=== PATIENT | male | born 1950 | race Caucasian/White ===

== ENCOUNTER 2017-11-08 10:37 | Emergency (ER) | payer MEDICARE, OTHER, SELFPAY ==
[2017-11-08 10:43] VITALS: BP 167/97; PULSE 65; RESP 18; TEMP 37.2; O2SAT 95; BMI 38.0
--- NOTE | 2017-11-08 10:49 | ED.MALEGU ---
HPI - Male Genitourinary General Chief complaint: Urogenital-Male Stated complaint: groin pain Time Seen by Provider: 11/08/17 10:48 Source: patient Mode of arrival: ambulatory Limitations: no limitations History of Present Illness HPI Narrative: 67-year-old male here for evaluation of left lower abdomen pain radiating to his left groin. Patient states that has been going on for approximately 24 hr now. He states that he has had bilateral inguinal hernia repairs several years ago he does not know whether that his symptoms that brought him in today or recurrence of those hernias. No urinary symptoms. No bowel symptoms. No skin changes. No rashes. No vomiting. Has not tried anything for prior to arrival. Related Data Home Medications Medication Instructions Recorded Confirmed ASPIRIN (#ASPIRIN) 81 mg PO QDAY #0 09/09/11 FENOFIBRATE (#TRICOR) 160 mg PO QDAY #0 09/09/11 LEVOTHYROXINE SODIUM 100 mcg PO QDAY #0 09/09/11 atorvastatin [Lipitor] 40 mg PO HS #0 09/09/11 dutasteride [Avodart] 0.5 mg PO QDAY #0 09/09/11 metoprolol tartrate 100 mg PO BID #0 09/09/11 omeprazole 20 mg PO BID@0600,2100 #0 09/09/11 telmisartan [Micardis] 80 mg PO QDAY #0 09/09/11 tramadol 50 mg PO PRN #0 09/09/11 INSULIN DETEMIR (LEVEMIR FLEXPEN 3 40 units SQ HS #3 ml 03/02/12 ML) INSULIN DETEMIR (LEVEMIR FLEXPEN 3 40 units SQ HS #3 ml 03/02/12 ML) allopurinol 300 mg PO QDAY #0 03/02/12 doxazosin [Cardura] mg PO HS #0 03/02/12 glipizide [Glucotrol] 10 mg PO BIDCC #0 03/02/12 Allergies Allergy/AdvReac Type Severity Reaction Status Date / Time Penicillins Allergy Unknown Verified 11/08/17 10:48 Review of Systems Constitutional Denies fever(s) Cardiovascular Denies chest pain and Denies dyspnea Respiratory Denies dyspnea Gastrointestinal Gastrointestinal: Reports abdominal pain (Left lower abdomen), Denies melena, Denies change in stool character and Denies diarrhea Genitourinary Denies dysuria Musculoskeletal Denies myalgias and Denies arthralgias Integumentary/Breasts Denies lesions and Denies rash Hematologic/Lymphatic Denies easy bleeding and Denies easy bruising FOR[facility]LY [facility], LATER [facility] Medical History Diabetes (Acute) Hyperlipidemia (Acute) Hypertension (Acute) Surgical History History of inguinal hernia repair (Acute) Social History Smoking Status: Never smoker Exam Initial Vital Signs Initial Vital Signs: Vital Signs Temperature 98.9 F 11/08/17 10:43 Pulse Rate 65 11/08/17 10:43 Respiratory Rate 18 11/08/17 10:43 Blood Pressure 167/97 H 11/08/17 10:43 Pulse Oximetry 95 11/08/17 10:43 Const General: cooperative, healthy appearing, comfortable, well developed and No well groomed Orientation: alert, awake and oriented x3 Resp Effort & Inspection: normal respiratory effort Auscultation: clear to auscultation bilaterally Cardio Rate: regular rate Rhythm: regular rhythm GI Inspection: non-distended Palpation: soft, No firm and No tender Other: Patient with a large soft mass in his left hemiscrotum. Difficult to distinguish between testicle in this mass. Does not seem to be tender to palpation Right testicle unremarkable. Circumcised. Back/Spine/Pelvis Back: No CVA tenderness Skin Lesions: no lesions Rashes: no rashes Neuro General: alert, awake and oriented x3 Extrem General: normal to inspection Left upper extremity: normal to inspection Psych Appearance: grossly normal and well kempt Course Orders Ordered: ED Orders 11/08/17 10:54 US scrotum Stat 11/08/17 11:15 Basic Metabolic Panel Stat Complete Blood Count AUTO DIFF Stat 11/08/17 11:37 CT abdomen pelvis w con Stat 11/08/17 11:40 Urine Microscopic Stat Vital Signs - 8 hr 11/08/17 10:43 11/08/17 12:44 11/08/17 13:16 Temperature 98.9 F Pulse Rate 65 56 L 55 L Respiratory Rate 18 Blood Pressure 167/97 H Blood Pressure [Left Arm] 118/70 130/63 H Pulse Oximetry 95 92 92 MDM - Male Genitourinary Lab Data Attestation: I reviewed the patient's lab results. Result diagrams: 11/08/17 11:15 11/08/17 11:15 Lab Results 08/11/08/17 11/08/17 Range/Units 11:15 11:15 11:40 WBC 5.7 (4.5-11.0) X10^3/uL RBC 4.82 (4.5-5.9) X10^6/uL Hgb 15.4 (13.5-17.5) g/dL Hct 44.1 (41-53) % MCV 91.6 (80-100) fL MCH 31.9 (26-34) PG MCHC 34.8 (30-36) % RDW 14.0 (11.6-14.8) % Plt Count 163 (150-400) X10^3/uL Neut % (Auto) 58.1 (50-75) % Lymph % (Auto) 31.4 (25-40) % [place] % (Auto) 7.8 (3-14) % Eos % (Auto) 2.1 (2-4) % Baso % (Auto) 0.6 (0-2) % Neut # (Auto) 3300 (8595-0249) /uL Sodium 140 (137-145) mmol/L Potassium 3.8 (3.4-5.1) mmol/L Chloride 102 (98-107) mmol/L Carbon Dioxide 29 (22-32) mmol/L BUN 21 H (9-20) mg/dL Creatinine 1.10 (0.66-1.25) mg/dL Estimated GFR > 60.0 (>60) mL/min BUN/Creatinine Ratio 19.1 (6-22) Glucose 190 H (80-110) mg/dL Calcium 9.6 (8.4-10.2) mg/dL Urine RBC None seen (0-5/HPF) Urine WBC None seen (0-5/HPF) Urine Bacteria None seen (None) Ur Culture Indicated? Not Reportable Micro UA Comment Not Reportable Imaging Data CT scan - abdomen: Radiologist's impression: PROCEDURE: CT ABDOMEN PELVIS W CON INDICATIONS: Left-sided abdominal pain TECHNIQUE: After the administration of intravenous contrast, 5 mm thick sections acquired from the diaphragm to the symphysis. 5 mm coronal and sagittal reformats were acquired. For radiation dose reduction, the following was used: automated exposure control, adjustment of mA and/or kV according to patient size. COMPARISON: None. FINDINGS: Image quality: Excellent. ABDOMEN: Lung bases: Lung bases are clear. Heart size is normal. Solid organs: Liver is normal in size. Hepatic steatosis is seen. No discrete hepatic lesion is noted. Multiple calcified stones are seen in dependent portion of gallbladder lumen. No CT evidence of acute cholecystitis. Biliary system is non dilated. Pancreas enhances normally. Spleen is normal in size and enhancement. No adrenal nodules. Kidneys demonstrate normal size and enhancement, without hydronephrosis. Peritoneum and bowel: Bowel loops demonstrate normal wall thickness and caliber. No free fluid or air. There is a small hiatal hernia. Extensive sigmoid diverticulosis is seen. No CT evidence of acute diverticulitis. Nodes and vessels: No retroperitoneal or mesenteric adenopathy by size criteria. Aorta and inferior vena cava are normal in size. Miscellaneous: No ventral hernias. PELVIS: Genitourinary: Partially distended urinary bladder shows mild unit bladder wall thickening, no discrete bladder wall mass is seen. Enlarged prostate gland with mild mass effect of floor of urinary bladder is seen. Miscellaneous: There is a right inguinal hernia containing fat only. No pelvic adenopathy. Bones: No suspicious bony lesions. No vertebral body compression fractures. IMPRESSION: 1. Sigmoid diverticulosis with no CT evidence of acute diverticulitis. No bowel obstruction. No free fluid or free air. Small hiatal hernia. 2. Suggestion of urinary bladder wall thickening which could represent infectious or inflammatory cystitis. No definite discrete bladder wall mass. No renal stone hydronephrosis. 3. Right inguinal hernia containing fat only. Cholelithiasis with no CT evidence of acute cholecystitis. Dictated by: Ayden Lainez M.D. on 11/08/2017 at 12:42 Approved by: Ayden Lainez M.D. on 11/08/2017 at 12:46 US scrotum: Radiologist's impression: [address] [address] Ultrasound Report Signed Patient: Modesto Rodriguez LMR#: [id number] : 1950Acct:[id number] Age/Sex: 67 / MDate of Service: 11/08/17 Loc: ED Accession Number: [id number] Procedure: US scrotum Ordering Provider: Woody Redmond D.O. PROCEDURE: US SCROTUM INDICATIONS: L testicle pain TECHNIQUE: Real-time scanning was performed of the scrotum and testicles, with image documentation. Color and pulse Doppler interrogation was performed of both testicles. COMPARISON: None. FINDINGS: Right: Testicle is normal in size at 5.1 x 2.2 x 3.0 cm, and homogenous in echotexture. Epididymis is normal in overall size and morphology. No hydrocele. Small right-sided varicoceles are seen. Overlying scrotal skin is normal in thickness. Left: Testicle is normal in size at 5.9 x 2.5 x 2.6 cm, and homogeneous in echotexture. Epididymis is normal in overall size and morphology. There is a large left-sided hydrocele. No significant left-sided varicoceles. Overlying scrotal skin is normal in thickness. Doppler: Color and pulse Doppler demonstrate normal and symmetric arterial flow in both testicles. IMPRESSION: 1. Large left hydrocele. No significant right-sided hydrocele. Small amount of right-sided varicoceles. 2. No evidence of testicular torsion. No discrete testicular lesion. Dictated by: Ayden Lainez M.D. on 11/08/2017 at 11:53 Approved by: Ayden Lainez M.D. on 11/08/2017 at 11:56 MDM Narrative Medical decision making narrative: Ultrasound does not show any evidence of torsion. The mass in the left hemiscrotum appears to be a hydrocele. CT scan does not show any incarcerated hernias. Patient does not have any bladder symptoms consistent with a UTI. Will hold on antibiotics for now. Will hold on further workup for now. Patient was given return precautions. He expressed understanding and agreement with plan. Discharge Plan Departure Patient Disposition: Home Clinical Impression: Abdominal pain, Hydrocele Discharge Date/Time: 11/08/17 13:42 Interventions: ED Discharge Assessment Last Done: 11/08/17 13:41 Instructions: DI for Abdominal Pain-Adult, DI for Hydrocele-Adult Activity Restrictions/Additional Instructions: Recommend you contact your primary care doctor tomorrow for a follow-up you are only limited in your activity by your pain. Return to the emergency department for any new or worsening symptoms. Prescriptions: No Action telmisartan [Micardis] 80 MG tablet 80 mg PO QDAY Qty: 0 RF: 0 tramadol 50 MG tablet 50 mg PO PRN Qty: 0 RF: 0 FENOFIBRATE (#TRICOR) 160 mg PO QDAY Qty: 0 RF: 0 atorvastatin [Lipitor] 40 MG tablet 40 mg PO HS Qty: 0 RF: 0 metoprolol tartrate 100 MG tablet 100 mg PO BID Qty: 0 RF: 0 omeprazole 20 MG capsule,delayed release(DR/EC) 20 mg PO BID@0600,2100 Qty: 0 RF: 0 dutasteride [Avodart] 0.5 MG capsule 0.5 mg PO QDAY Qty: 0 RF: 0 LEVOTHYROXINE SODIUM 100 mcg PO QDAY Qty: 0 RF: 0 ASPIRIN (#ASPIRIN) 81 mg PO QDAY Qty: 0 RF: 0 allopurinol 300 MG tablet 300 mg PO QDAY Qty: 0 RF: 0 INSULIN DETEMIR (LEVEMIR FLEXPEN 3 ML) 40 units SQ HS Qty: 3 RF: 0 INSULIN DETEMIR (LEVEMIR FLEXPEN 3 ML) 40 units SQ HS Qty: 3 RF: 0 glipizide [Glucotrol] 10 MG tablet 10 mg PO BIDCC Qty: 0 RF: 0 doxazosin [Cardura] 4 MG tablet PO HS Qty: 0 RF: 0
--- NOTE | 2017-11-08 10:54 | DI.US.S_ITS ---
PROCEDURE: US SCROTUM INDICATIONS: L testicle pain TECHNIQUE: Real-time scanning was performed of the scrotum and testicles, with image documentation. Color and pulse Doppler interrogation was performed of both testicles. COMPARISON: None. FINDINGS: Right: Testicle is normal in size at 5.1 x 2.2 x 3.0 cm, and homogenous in echotexture. Epididymis is normal in overall size and morphology. No hydrocele. Small right-sided varicoceles are seen. Overlying scrotal skin is normal in thickness. Left: Testicle is normal in size at 5.9 x 2.5 x 2.6 cm, and homogeneous in echotexture. Epididymis is normal in overall size and morphology. There is a large left-sided hydrocele. No significant left-sided varicoceles. Overlying scrotal skin is normal in thickness. Doppler: Color and pulse Doppler demonstrate normal and symmetric arterial flow in both testicles. IMPRESSION: 1. Large left hydrocele. No significant right-sided hydrocele. Small amount of right-sided varicoceles. 2. No evidence of testicular torsion. No discrete testicular lesion. Dictated by: Ayden Lainez M.D. on 11/08/2017 at 11:53 Approved by: Ayden Lainez M.D. on 11/08/2017 at 11:56
[2017-11-08 11:33] LABS: Add Manual Diff / Slide Review NO; Basophils Percent Auto 0.6 % (0-2); Eosinophils Percent Auto 2.1 % (2-4); Hematocrit 44.1 % (41-53); Hemoglobin 15.4 g/dL (13.5-17.5); Lymphocytes Percent Auto 31.4 % (25-40); Mean Corpuscular HGB Conc 34.8 % (30-36); Mean Corpuscular Hemoglobin 31.9 PG (26-34); Mean Corpuscular Volume 91.6 fL (80-100); Monocytes Percent Auto 7.8 % (3-14); Neutrophils Absolute Auto 3300 /uL (3000-5900); Neutrophils Percent Auto 58.1 % (50-75); Platelet Count 163 X10^3/uL (150-400); Red Blood Cell Count 4.82 X10^6/uL (4.5-5.9); White Blood Cell Count 5.7 X10^3/uL (4.5-11.0)
--- NOTE | 2017-11-08 11:37 | DI.CT.S_ITS ---
PROCEDURE: CT ABDOMEN PELVIS W CON INDICATIONS: Left-sided abdominal pain TECHNIQUE: After the administration of intravenous contrast, 5 mm thick sections acquired from the diaphragm to the symphysis. 5 mm coronal and sagittal reformats were acquired. For radiation dose reduction, the following was used: automated exposure control, adjustment of mA and/or kV according to patient size. COMPARISON: None. FINDINGS: Image quality: Excellent. ABDOMEN: Lung bases: Lung bases are clear. Heart size is normal. Solid organs: Liver is normal in size. Hepatic steatosis is seen. No discrete hepatic lesion is noted. Multiple calcified stones are seen in dependent portion of gallbladder lumen. No CT evidence of acute cholecystitis. Biliary system is non dilated. Pancreas enhances normally. Spleen is normal in size and enhancement. No adrenal nodules. Kidneys demonstrate normal size and enhancement, without hydronephrosis. Peritoneum and bowel: Bowel loops demonstrate normal wall thickness and caliber. No free fluid or air. There is a small hiatal hernia. Extensive sigmoid diverticulosis is seen. No CT evidence of acute diverticulitis. Nodes and vessels: No retroperitoneal or mesenteric adenopathy by size criteria. Aorta and inferior vena cava are normal in size. Miscellaneous: No ventral hernias. PELVIS: Genitourinary: Partially distended urinary bladder shows mild unit bladder wall thickening, no discrete bladder wall mass is seen. Enlarged prostate gland with mild mass effect of floor of urinary bladder is seen. Miscellaneous: There is a right inguinal hernia containing fat only. No pelvic adenopathy. Bones: No suspicious bony lesions. No vertebral body compression fractures. IMPRESSION: 1. Sigmoid diverticulosis with no CT evidence of acute diverticulitis. No bowel obstruction. No free fluid or free air. Small hiatal hernia. 2. Suggestion of urinary bladder wall thickening which could represent infectious or inflammatory cystitis. No definite discrete bladder wall mass. No renal stone hydronephrosis. 3. Right inguinal hernia containing fat only. Cholelithiasis with no CT evidence of acute cholecystitis. Dictated by: Ayden Lainez M.D. on 11/08/2017 at 12:42 Approved by: Ayden Lainez M.D. on 11/08/2017 at 12:46
[2017-11-08 11:39] LABS: BUN Creatinine Ratio 19.1 (6-22); Blood Urea Nitrogen 21 mg/dL (9-20); Calcium 9.6 mg/dL (8.4-10.2); Carbon Dioxide 29 mmol/L (22-32); Chloride 102 mmol/L (98-107); Estimated Glomerular Filt Rate > 60.0 mL/min (>60); Glucose 190 mg/dL (80-110); HEMOLYSIS < 15 (0-50); Potassium 3.8 mmol/L (3.4-5.1); Sodium 140 mmol/L (137-145)
[2017-11-08 12:08] LABS: Bacteria Urine None Seen; RBC Urine None Seen (0-5/HPF); WBC Urine None Seen (0-5/HPF)
[2017-11-08 12:44] VITALS: BP 118/70; PULSE 56; RESP 18; O2SAT 92
[2017-11-08 13:16] VITALS: BP 130/63; PULSE 55; RESP 18; O2SAT 92
== END 2017-11-08 13:42 | disposition home or self-care (01) ==
PROVIDERS: Emergency Provider Emergency Medicine; PCP Family Medicine
DX: N43.3 Hydrocele, unspecified (principal); R10.9 Unspecified abdominal pain
CPT/HCPCS: 36415; 36591; 74177; 76870; 80048; 81003; 81015; 85025; 99282; 99285; Q9967

== ENCOUNTER 2022-02-13 06:50 | Emergency (ER) | payer MEDICARE, OTHER, SELFPAY ==
[2022-02-13] VITALS (117 sets, daily range): BP systolic 112–196; BP diastolic 58–101; PULSE 61–92; RESP 12–28; TEMP 36.7; O2SAT 87–98; BMI 41.3
--- NOTE | 2022-02-13 06:55 | DI.RAD.S_ITS ---
PROCEDURE: XR CHEST 1V INDICATIONS: chest pain TECHNIQUE: One view of the chest was acquired. COMPARISON: None. FINDINGS: Surgical changes and devices: None. Lungs and pleura: Lungs are clear. No pleural effusions or pneumothorax. Mediastinum: Mediastinal contours appear normal. Heart size is normal. Bones and chest wall: No suspicious bony lesions. Overlying soft tissues appear unremarkable. IMPRESSION: No acute cardiopulmonary disease. Dictated by: Brandie Christian M.D. on 02/13/2022 at 8:28 Approved by: Brandie Christian M.D. on 02/13/2022 at 8:28
--- NOTE | 2022-02-13 06:57 | ED.CHESTPAIN ---
HPI - Chest Pain <Tomy PrasadDO ophelia - Last Filed: 02/17/22 20:25> General Chief Complaint: Chest Pain Stated Complaint: CP Time Seen by Provider: 02/13/22 06:55 History of Present Illness HPI narrative: 71-year-old male nonsmoker with history of coronary artery disease and reports history of 7 stents, hypertension, hyperlipidemia, diabetes, GERD and gout presents by [facility] for evaluation of chest pain. He states that he has been having chest pain and pressure off and on since . He states when it 1st started he was relaxing and seemed to go away without much excitement. Since then he is had increasing episodes and today states the pain radiated across his chest for the 1st time. He denies obvious provocation and states that the 2 nitro the medics gave him took his pain from a 9 down to a 2. He denies associated symptoms such as dizziness, weakness or lightheaded but does state that he has been nauseated. He denies any obvious exertional symptoms or exercise intolerance. He states he thinks his most recent stress test was in October and thinks that went relatively well. He thinks his most recent heart catheterization was in 2018. 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 Related Data Home Medications Medication Instructions Recorded Confirmed ASPIRIN (#ASPIRIN) 81 mg PO QDAY ##0 09/09/11 FENOFIBRATE (#TRICOR) 160 mg PO QDAY ##0 09/09/11 LEVOTHYROXINE SODIUM 100 mcg PO QDAY ##0 09/09/11 atorvastatin 40 mg tablet (Lipitor) 40 mg PO HS ##0 09/09/11 dutasteride 0.5 mg capsule 0.5 mg PO QDAY ##0 09/09/11 (Avodart) metoprolol tartrate 100 mg tablet 100 mg PO BID ##0 09/09/11 omeprazole 20 mg capsule,delayed 20 mg PO BID@0600,2100 ##0 09/09/11 release telmisartan 80 mg tablet (Micardis) 80 mg PO QDAY ##0 09/09/11 tramadol 50 mg tablet 50 mg PO PRN ##0 09/09/11 INSULIN DETEMIR (LEVEMIR FLEXPEN 3 40 units SQ HS #3 mL 03/02/12 ML) INSULIN DETEMIR (LEVEMIR FLEXPEN 3 40 units SQ HS #3 mL 03/02/12 ML) allopurinol 300 mg tablet 300 mg PO QDAY ##0 03/02/12 doxazosin 4 mg tablet (Cardura) mg PO HS ##0 03/02/12 glipizide 10 mg tablet (Glucotrol) 10 mg PO BIDCC ##0 03/02/12 Previous Rx's Medication Instructions Recorded isosorbide mononitrate 60 mg 60 mg PO DAILY #30 tabs 02/13/22 tablet,extended release 24 hr Allergies Allergy/AdvReac Type Severity Reaction Status Date / Time Penicillins Allergy Unknown Verified 11/08/17 10:48 Review of Systems <Tomy Washington DO - Last Filed: 02/17/22 20:25> Review of Systems Narrative: GENERAL: Denies chills, fatigue, malaise, fever, sweats. HEENT: Denies sinus pain, ear pain, sore throat, difficulty swallowing, dizziness. RESPIRATORY: Denies dyspnea, cough, wheezing, hemoptysis, sputum. CARDIOVASCULAR: See HPI GASTROINTESTINAL: See HPI : Denies dysuria, frequency, incontinence, hematuria, urinary retention. MUSCULOSKELETAL: denies weakness, joint pain, or bony pain SKIN: Denies rash, skin lesions, or other NEUROLOGIC: Denies weakness, headache, numbness, change in speech, confusion, seizures, incoordination. PSYCHIATRIC: No concerning psychosocial issues. 12 point review of systems is negative except for those stated above Patient History <Tomy Washington DO - Last Filed: 02/17/22 20:25> Medical History Diabetes Hyperlipidemia Hypertension Surgical History History of inguinal hernia repair Social History Smoking Status: Never smoker Smoking Status: Never smoker alcohol intake frequency: holidays/special occasions only Substance Use Type: does not use Exam <Tomy Washington DO - Last Filed: 02/17/22 20:25> Narrative Exam Narrative: GENERAL: [71] year old patient appears stated age. Well-developed patient, in mild distress. HEAD: Atraumatic. Normocephalic. EYES: Pupils equal round and reactive. Extraocular motions intact. No scleral icterus. No injection or drainage. ENT: Nose without bleeding, purulent drainage. Throat without erythema, tonsillar hypertrophy or exudate. Airway patent. NECK: Trachea midline. Non tender CARDIOVASCULAR: Regular rate and rhythm without murmurs, gallops, or rubs. RESPIRATORY: Clear to auscultation. Breath sounds equal bilaterally. No wheezes, rales, or rhonchi. GASTROINTESTINAL: Abdomen soft, non-tender, nondistended. EXTREMITIES: No edema or joint tenderness. BACK: Nontender without deformity or crepitance. No flank tenderness. NEURO: AOx3. SKIN: No rash or erythema of visible areas Initial Vital Signs Initial Vital Signs: Vital Signs Temperature 98.0 F 02/13/22 06:59 Pulse Rate 85 02/13/22 06:59 Respiratory Rate 22 02/13/22 06:59 Blood Pressure 160/89 H 02/13/22 06:59 Pulse Oximetry 96 02/13/22 06:59 Oxygen Delivery Method 02/13/22 06:59 <Carmina Ramos, DO - Last Filed: 02/13/22 19:19> Initial Vital Signs Initial Vital Signs: Vital Signs Temperature 98.0 F 02/13/22 06:59 Pulse Rate 85 02/13/22 06:59 Respiratory Rate 22 02/13/22 06:59 Blood Pressure 160/89 H 02/13/22 06:59 Pulse Oximetry 96 02/13/22 06:59 Oxygen Delivery Method 02/13/22 06:59 Course <Tomy Washington, DO - Last Filed: 02/17/22 20:25> Orders Ordered: Discontinued Medications Acetaminophen (Acetaminophen 325 Mg Tablet) 975 mg PO NOW ONE Stop: 02/13/22 12:30 Last Admin: 02/13/22 12:31 Dose: 975 mg Documented By: JILLIAN Aspirin (Aspirin 81 Mg Chew Tab) 324 mg PO NOW ONE Stop: 02/13/22 06:56 Last Admin: 02/13/22 07:11 Dose: Not Given Documented By: CHRIS Dextrose (Dextrose 50 % In Water 25 Gm/50 Ml Syringe) 25 gm IV PRN PRN; Protocol PRN Reason: Hypoglycemia Sodium Chloride (Normal Saline 0.9%) 1,000 mls @ 150 mls/hr IV CONT TONIO Last Infusion: 02/13/22 14:47 Dose: 0 mls/hr Documented By: Admin: 02/13/22 07:35 Dose: 150 mls/hr Documented By: JILLIAN Insulin Glargine (Insulin Glargine 100 Unit/Ml 3ml Pen) 42 unit SUBCUT NOW ONE Stop: 02/13/22 10:10 Last Admin: 02/13/22 12:25 Dose: Not Given Documented By: JILLIAN Insulin Glargine (Insulin Glargine 100 Unit/Ml 3ml Pen) 42 unit SUBCUT NOW ONE Stop: 02/13/22 12:31 Last Admin: 02/13/22 12:25 Dose: 42 unit Documented By: JILLIAN Co-signed By: JILLIAN(2) Insulin Glargine (Insulin Glargine 100 Unit/Ml 3ml Pen) 40 unit SUBCUT TID TONIO Insulin Human Lispro (Insulin Lispro 100 Unit/Ml 3ml Vial) 42 unit SUBCUT AC TONIO Last Admin: 02/13/22 16:21 Dose: 42 unit Documented By: KARI Co-signed By: ASHLEY Admin: 02/13/22 12:19 Dose: 42 unit Documented By: JILLIAN Co-signed By: JILLIAN(3) Isosorbide Mononitrate (Isosorbide Mononitrate Er 30 Mg Tablet) 60 mg PO NOW ONE Stop: 02/13/22 17:16 Last Admin: 02/13/22 17:49 Dose: 60 mg Documented By: KARI Morphine Sulfate (Morphine 2 Mg/Ml Inj) 2 mg IV NOW ONE Stop: 02/13/22 15:59 Last Admin: 02/13/22 16:21 Dose: 2 mg Documented By: KARI Nitroglycerin (Nitroglycerin 0.4 Mg Sl Tab) 0.4 mg SL [id number] PRN PRN Reason: Chest Pain Last Admin: 02/13/22 08:45 Dose: 0.4 mg Documented By: Admin: 02/13/22 07:14 Dose: 0.4 mg Documented By: CHRIS Nitroglycerin (Nitroglycerin Oint 1 Inch/Gm Oint...G.) 1 inch TOP NOW ONE Stop: 02/13/22 10:46 Last Admin: 02/13/22 10:55 Dose: 1 inch Documented By: JILLIAN(3) Vital Signs Vital signs: Vital Signs - 8 hr 02/13/22 11:20 02/13/22 11:20 02/13/22 11:26 Pulse Rate 70 Respiratory Rate Blood Pressure 144/73 H 147/71 H Pulse Oximetry 93 02/13/22 11:26 02/13/22 11:30 02/13/22 11:31 Pulse Rate 70 68 68 Respiratory Rate Blood Pressure Pulse Oximetry 95 94 95 02/13/22 11:31 02/13/22 11:35 02/13/22 11:35 Pulse Rate 74 Respiratory Rate Blood Pressure 152/73 H 160/80 H Pulse Oximetry 96 02/13/22 11:41 02/13/22 11:41 02/13/22 11:45 Pulse Rate 72 Respiratory Rate Blood Pressure 149/70 H 152/74 H Pulse Oximetry 96 02/13/22 11:45 02/13/22 11:51 02/13/22 11:51 Pulse Rate 73 77 Respiratory Rate Blood Pressure 158/69 H Pulse Oximetry 95 96 02/13/22 11:55 02/13/22 11:55 02/13/22 12:00 Pulse Rate 74 Respiratory Rate Blood Pressure 151/70 H 148/68 H Pulse Oximetry 95 02/13/22 12:00 02/13/22 12:05 02/13/22 12:05 Pulse Rate 74 73 Respiratory Rate Blood Pressure 147/68 H Pulse Oximetry 94 94 02/13/22 12:10 02/13/22 12:10 02/13/22 12:16 Pulse Rate 73 79 Respiratory Rate Blood Pressure 148/62 H Pulse Oximetry 93 93 02/13/22 12:16 02/13/22 12:30 02/13/22 13:00 Pulse Rate 74 69 Respiratory Rate 17 Blood Pressure 154/68 H Pulse Oximetry 96 98 02/13/22 13:07 02/13/22 14:26 02/13/22 14:30 Pulse Rate Respiratory Rate Blood Pressure 113/69 148/66 H 150/72 H Pulse Oximetry 02/13/22 14:30 02/13/22 14:36 02/13/22 14:36 Pulse Rate 78 69 Respiratory Rate 21 18 Blood Pressure 141/67 H Pulse Oximetry 95 94 02/13/22 14:41 02/13/22 14:41 02/13/22 14:46 Pulse Rate 63 67 Respiratory Rate 16 18 Blood Pressure 126/61 Pulse Oximetry 91 91 02/13/22 14:46 12/01/22 14:51 02/13/22 14:51 Pulse Rate 64 Respiratory Rate 17 Blood Pressure 135/62 155/69 H Pulse Oximetry 02/13/22 14:56 02/13/22 14:56 02/13/22 15:00 Pulse Rate 64 Respiratory Rate 17 Blood Pressure 141/63 H 130/63 Pulse Oximetry 96 02/13/22 15:00 02/13/22 15:05 02/13/22 15:05 Pulse Rate 64 87 Respiratory Rate 15 28 H Blood Pressure 136/71 Pulse Oximetry 96 02/13/22 15:11 02/13/22 15:11 02/13/22 15:16 Pulse Rate 69 68 Respiratory Rate 17 17 Blood Pressure 142/65 H Pulse Oximetry 95 92 02/13/22 15:16 02/13/22 15:20 02/13/22 15:20 Pulse Rate 71 Respiratory Rate 19 Blood Pressure 137/62 140/66 Pulse Oximetry 97 02/13/22 15:26 02/13/22 15:26 02/13/22 15:30 Pulse Rate 68 Respiratory Rate 18 Blood Pressure 143/65 H 144/65 H Pulse Oximetry 94 02/13/22 15:30 02/13/22 15:36 02/13/22 15:36 Pulse Rate 66 68 Respiratory Rate 18 20 Blood Pressure 132/62 Pulse Oximetry 92 93 02/13/22 15:41 02/13/22 15:41 02/13/22 15:45 Pulse Rate 63 63 Respiratory Rate 14 15 Blood Pressure 142/67 H Pulse Oximetry 94 96 02/13/22 15:45 02/13/22 15:51 02/13/22 15:51 Pulse Rate 71 Respiratory Rate 19 Blood Pressure 153/73 H 144/68 H Pulse Oximetry 97 02/13/22 15:56 02/13/22 15:56 02/13/22 16:00 Pulse Rate 73 68 Respiratory Rate 20 19 Blood Pressure 159/69 H Pulse Oximetry 96 94 02/13/22 16:01 02/13/22 16:01 02/13/22 16:06 Pulse Rate 67 Respiratory Rate 17 Blood Pressure 148/70 H 151/67 H Pulse Oximetry 92 02/13/22 16:06 02/13/22 16:11 02/13/22 16:11 Pulse Rate 64 65 Respiratory Rate 19 12 Blood Pressure 152/67 H Pulse Oximetry 92 94 02/13/22 16:16 02/13/22 16:16 02/13/22 16:21 Pulse Rate 64 67 Respiratory Rate 15 18 Blood Pressure 157/74 H Pulse Oximetry 95 94 02/13/22 16:21 02/13/22 16:26 02/13/22 16:26 Pulse Rate 69 Respiratory Rate 15 Blood Pressure 148/71 H 159/74 H Pulse Oximetry 95 02/13/22 16:30 02/13/22 16:31 02/13/22 16:31 Pulse Rate 72 70 Respiratory Rate 24 17 Blood Pressure 129/60 Pulse Oximetry 95 95 02/13/22 16:36 02/13/22 16:36 02/13/22 16:40 Pulse Rate 66 62 Respiratory Rate 18 16 Blood Pressure 132/60 Pulse Oximetry 91 93 02/13/22 16:40 02/13/22 16:46 02/13/22 16:46 Pulse Rate 65 Respiratory Rate 19 Blood Pressure 130/67 142/63 H Pulse Oximetry 95 02/13/22 16:51 02/13/22 16:51 02/13/22 16:56 Pulse Rate 64 64 Respiratory Rate 21 18 Blood Pressure 150/65 H Pulse Oximetry 92 94 02/13/22 16:56 02/13/22 17:00 02/13/22 17:01 Pulse Rate 64 65 Respiratory Rate 18 20 Blood Pressure 149/70 H Pulse Oximetry 92 92 02/13/22 17:01 02/13/22 17:05 02/13/22 17:05 Pulse Rate 76 Respiratory Rate 24 Blood Pressure 145/65 H 133/70 Pulse Oximetry 93 02/13/22 17:11 02/13/22 17:11 02/13/22 17:16 Pulse Rate 73 73 Respiratory Rate 17 18 Blood Pressure 175/80 H Pulse Oximetry 93 95 02/13/22 17:16 02/13/22 17:20 02/13/22 17:21 Pulse Rate 72 Respiratory Rate 23 Blood Pressure 174/68 H 142/67 H Pulse Oximetry 95 02/13/22 17:25 02/13/22 17:27 02/13/22 17:30 Pulse Rate 61 Respiratory Rate Blood Pressure 150/74 H 145/74 H Pulse Oximetry 94 02/13/22 17:30 02/13/22 17:35 02/13/22 17:35 Pulse Rate Respiratory Rate Blood Pressure 151/78 H Pulse Oximetry 95 94 02/13/22 17:39 02/13/22 17:40 02/13/22 17:52 Pulse Rate Respiratory Rate Blood Pressure 169/79 H 135/63 Pulse Oximetry 94 02/13/22 17:52 02/13/22 17:56 02/13/22 17:56 Pulse Rate 76 71 Respiratory Rate 22 20 Blood Pressure 124/61 Pulse Oximetry 96 96 02/13/22 18:00 02/13/22 18:01 02/13/22 18:01 Pulse Rate 70 69 Respiratory Rate 18 16 Blood Pressure 133/64 Pulse Oximetry 94 95 02/13/22 18:06 02/13/22 18:06 02/13/22 18:10 Pulse Rate 66 Respiratory Rate 17 Blood Pressure 136/60 131/68 Pulse Oximetry 96 02/13/22 18:10 02/13/22 18:16 02/13/22 18:16 Pulse Rate 64 65 Respiratory Rate 16 20 Blood Pressure 142/66 H Pulse Oximetry 96 94 02/13/22 18:21 02/13/22 18:21 02/13/22 18:26 Pulse Rate 65 Respiratory Rate 17 Blood Pressure 130/65 148/63 H Pulse Oximetry 92 02/13/22 18:26 02/13/22 18:30 02/13/22 18:31 Pulse Rate 64 66 Respiratory Rate 18 17 Blood Pressure 139/65 Pulse Oximetry 95 97 02/13/22 18:31 02/13/22 18:36 02/13/22 18:36 Pulse Rate 63 64 Respiratory Rate 16 17 Blood Pressure 125/60 Pulse Oximetry 96 94 <Carmina Ramos, DO - Last Filed: 02/13/22 19:19> Orders Ordered: Discontinued Medications Acetaminophen (Acetaminophen 325 Mg Tablet) 975 mg PO NOW ONE Stop: 02/13/22 12:30 Last Admin: 02/13/22 12:31 Dose: 975 mg Documented By: JILLIAN Aspirin (Aspirin 81 Mg Chew Tab) 324 mg PO NOW ONE Stop: 02/13/22 06:56 Last Admin: 02/13/22 07:11 Dose: Not Given Documented By: CHRIS Dextrose (Dextrose 50 % In Water 25 Gm/50 Ml Syringe) 25 gm IV PRN PRN; Protocol PRN Reason: Hypoglycemia Sodium Chloride (Normal Saline 0.9%) 1,000 mls @ 150 mls/hr IV CONT TONIO Last Infusion: 02/13/22 14:47 Dose: 0 mls/hr Documented By: Admin: 02/13/22 07:35 Dose: 150 mls/hr Documented By: JILLIAN Insulin Glargine (Insulin Glargine 100 Unit/Ml 3ml Pen) 42 unit SUBCUT NOW ONE Stop: 02/13/22 10:10 Last Admin: 02/13/22 12:25 Dose: Not Given Documented By: JILLIAN Insulin Glargine (Insulin Glargine 100 Unit/Ml 3ml Pen) 42 unit SUBCUT NOW ONE Stop: 02/13/22 12:31 Last Admin: 02/13/22 12:25 Dose: 42 unit Documented By: JILLIAN Co-signed By: JILLIAN(2) Insulin Glargine (Insulin Glargine 100 Unit/Ml 3ml Pen) 40 unit SUBCUT TID TONIO Insulin Human Lispro (Insulin Lispro 100 Unit/Ml 3ml Vial) 42 unit SUBCUT AC TONIO Last Admin: 02/13/22 16:21 Dose: 42 unit Documented By: KARI Co-signed By: ASHLEY Admin: 02/13/22 12:19 Dose: 42 unit Documented By: JILLIAN Co-signed By: JILLIAN(3) Isosorbide Mononitrate (Isosorbide Mononitrate Er 30 Mg Tablet) 60 mg PO NOW ONE Stop: 02/13/22 17:16 Last Admin: 02/13/22 17:49 Dose: 60 mg Documented By: KARI Morphine Sulfate (Morphine 2 Mg/Ml Inj) 2 mg IV NOW ONE Stop: 02/13/22 15:59 Last Admin: 02/13/22 16:21 Dose: 2 mg Documented By: KARI Nitroglycerin (Nitroglycerin 0.4 Mg Sl Tab) 0.4 mg SL [id number] PRN PRN Reason: Chest Pain Last Admin: 02/13/22 08:45 Dose: 0.4 mg Documented By: Admin: 02/13/22 07:14 Dose: 0.4 mg Documented By: CHRIS Nitroglycerin (Nitroglycerin Oint 1 Inch/Gm Oint...G.) 1 inch TOP NOW ONE Stop: 02/13/22 10:46 Last Admin: 02/13/22 10:55 Dose: 1 inch Documented By: JILLIAN(3) Consultations Consultation #1: Dr. Drew, cardiology in [place]. They would like to transfer patient for observation and possibly get a cardiac catheterization for increasing episodes of angina. He does recommend nitro paste at this time patient is currently chest pain-free but does not feel that he needs heparin drip. If something changes they would ask for recontact but will likely try to bring up for observation other option would be a long-acting nitrate such as Imdur and then outpatient cardiac catheterization but felt it was preferable to try to get him up there sooner. Time: 10:46 Consultation #2: Dr. Drew cardiology in [place]. Call was to transfer patient there are no longer any observation beds available. Discussed we called regionally there is no bed availability and patient has been placed on the regional list but will likely be several days before he is transferred. Patient's troponin continues to trend down words. He has been improved on nitro paste. After discussion with Dr. Drew felt he is not having ACS currently and we can place patient on Imdur 60 mg daily, he will talk with his partners and will hide have him heart catheterized this upcoming week with strict return precautions. Time: 17:10 Vital Signs Vital signs: Vital Signs - 8 hr 02/13/22 11:20 02/13/22 11:20 02/13/22 11:26 Pulse Rate 70 Respiratory Rate Blood Pressure 144/73 H 147/71 H Pulse Oximetry 93 02/13/22 11:26 02/13/22 11:30 02/13/22 11:31 Pulse Rate 70 68 68 Respiratory Rate Blood Pressure Pulse Oximetry 95 94 95 02/13/22 11:31 02/13/22 11:35 02/13/22 11:35 Pulse Rate 74 Respiratory Rate Blood Pressure 152/73 H 160/80 H Pulse Oximetry 96 02/13/22 11:41 02/13/22 11:41 02/13/22 11:45 Pulse Rate 72 Respiratory Rate Blood Pressure 149/70 H 152/74 H Pulse Oximetry 96 02/13/22 11:45 02/13/22 11:51 02/13/22 11:51 Pulse Rate 73 77 Respiratory Rate Blood Pressure 158/69 H Pulse Oximetry 95 96 02/13/22 11:55 02/13/22 11:55 02/13/22 12:00 Pulse Rate 74 Respiratory Rate Blood Pressure 151/70 H 148/68 H Pulse Oximetry 95 02/13/22 12:00 02/13/22 12:05 02/13/22 12:05 Pulse Rate 74 73 Respiratory Rate Blood Pressure 147/68 H Pulse Oximetry 94 94 02/13/22 12:10 02/13/22 12:10 02/13/22 12:16 Pulse Rate 73 79 Respiratory Rate Blood Pressure 148/62 H Pulse Oximetry 93 93 02/13/22 12:16 02/13/22 12:30 02/13/22 13:00 Pulse Rate 74 69 Respiratory Rate 17 Blood Pressure 154/68 H Pulse Oximetry 96 98 02/13/22 13:07 02/13/22 14:26 02/13/22 14:30 Pulse Rate Respiratory Rate Blood Pressure 113/69 148/66 H 150/72 H Pulse Oximetry 02/13/22 14:30 02/13/22 14:36 02/13/22 14:36 Pulse Rate 78 69 Respiratory Rate 21 18 Blood Pressure 141/67 H Pulse Oximetry 95 94 02/13/22 14:41 02/13/22 14:41 02/13/22 14:46 Pulse Rate 63 67 Respiratory Rate 16 18 Blood Pressure 126/61 Pulse Oximetry 91 91 02/13/22 14:46 02/13/22 14:51 02/13/22 14:51 Pulse Rate 64 Respiratory Rate 17 Blood Pressure 135/62 155/69 H Pulse Oximetry 02/13/22 14:56 02/13/22 14:56 02/13/22 15:00 Pulse Rate 64 Respiratory Rate 17 Blood Pressure 141/63 H 130/63 Pulse Oximetry 96 02/13/22 15:00 02/13/22 15:05 02/13/22 15:05 Pulse Rate 64 87 Respiratory Rate 15 28 H Blood Pressure 136/71 Pulse Oximetry 96 02/13/22 15:11 02/13/22 15:11 02/13/22 15:16 Pulse Rate 69 68 Respiratory Rate 17 17 Blood Pressure 142/65 H Pulse Oximetry 95 92 02/13/22 15:16 02/13/22 15:20 02/13/22 15:20 Pulse Rate 71 Respiratory Rate 19 Blood Pressure 137/62 140/66 Pulse Oximetry 97 02/13/22 15:26 02/13/22 15:26 02/13/22 15:30 Pulse Rate 68 Respiratory Rate 18 Blood Pressure 143/65 H 144/65 H Pulse Oximetry 94 02/13/22 15:30 02/13/22 15:36 02/13/22 15:36 Pulse Rate 66 68 Respiratory Rate 18 20 Blood Pressure 132/62 Pulse Oximetry 92 93 02/13/22 15:41 02/13/22 15:41 02/13/22 15:45 Pulse Rate 63 63 Respiratory Rate 14 15 Blood Pressure 142/67 H Pulse Oximetry 94 96 02/13/22 15:45 02/13/22 15:51 02/13/22 15:51 Pulse Rate 71 Respiratory Rate 19 Blood Pressure 153/73 H 144/68 H Pulse Oximetry 97 02/13/22 15:56 02/13/22 15:56 02/13/22 16:00 Pulse Rate 73 68 Respiratory Rate 20 19 Blood Pressure 159/69 H Pulse Oximetry 96 94 02/13/22 16:01 02/13/22 16:01 02/13/22 16:06 Pulse Rate 67 Respiratory Rate 17 Blood Pressure 148/70 H 151/67 H Pulse Oximetry 92 02/13/22 16:06 02/13/22 16:11 02/13/22 16:11 Pulse Rate 64 65 Respiratory Rate 19 12 Blood Pressure 152/67 H Pulse Oximetry 92 94 02/13/22 16:16 02/13/22 16:16 02/13/22 16:21 Pulse Rate 64 67 Respiratory Rate 15 18 Blood Pressure 157/74 H Pulse Oximetry 95 94 02/13/22 16:21 02/13/22 16:26 02/13/22 16:26 Pulse Rate 69 Respiratory Rate 15 Blood Pressure 148/71 H 159/74 H Pulse Oximetry 95 02/13/22 16:30 02/13/22 16:31 02/13/22 16:31 Pulse Rate 72 70 Respiratory Rate 24 17 Blood Pressure 129/60 Pulse Oximetry 95 95 02/13/22 16:36 02/13/22 16:36 02/13/22 16:40 Pulse Rate 66 62 Respiratory Rate 18 16 Blood Pressure 132/60 Pulse Oximetry 91 93 02/13/22 16:40 02/13/22 16:46 02/13/22 16:46 Pulse Rate 65 Respiratory Rate 19 Blood Pressure 130/67 142/63 H Pulse Oximetry 95 02/13/22 16:51 02/13/22 16:51 02/13/22 16:56 Pulse Rate 64 64 Respiratory Rate 21 18 Blood Pressure 150/65 H Pulse Oximetry 92 94 02/13/22 16:56 02/13/22 17:00 02/13/22 17:01 Pulse Rate 64 65 Respiratory Rate 18 20 Blood Pressure 149/70 H Pulse Oximetry 92 92 02/13/22 17:01 02/13/22 17:05 02/13/22 17:05 Pulse Rate 76 Respiratory Rate 24 Blood Pressure 145/65 H 133/70 Pulse Oximetry 93 02/13/22 17:11 02/13/22 17:11 02/13/22 17:16 Pulse Rate 73 73 Respiratory Rate 17 18 Blood Pressure 175/80 H Pulse Oximetry 93 95 02/13/22 17:16 02/13/22 17:20 02/13/22 17:21 Pulse Rate 72 Respiratory Rate 23 Blood Pressure 174/68 H 142/67 H Pulse Oximetry 95 02/13/22 17:25 02/13/22 17:27 02/13/22 17:30 Pulse Rate 61 Respiratory Rate Blood Pressure 150/74 H 145/74 H Pulse Oximetry 94 02/13/22 17:30 02/13/22 17:35 02/13/22 17:35 Pulse Rate Respiratory Rate Blood Pressure 151/78 H Pulse Oximetry 95 94 02/13/22 17:39 02/13/22 17:40 02/13/22 17:52 Pulse Rate Respiratory Rate Blood Pressure 169/79 H 135/63 Pulse Oximetry 94 02/13/22 17:52 02/13/22 17:56 02/13/22 17:56 Pulse Rate 76 71 Respiratory Rate 22 20 Blood Pressure 124/61 Pulse Oximetry 96 96 02/13/22 18:00 02/13/22 18:01 02/13/22 18:01 Pulse Rate 70 69 Respiratory Rate 18 16 Blood Pressure 133/64 Pulse Oximetry 94 95 02/13/22 18:06 02/13/22 18:06 02/13/22 18:10 Pulse Rate 66 Respiratory Rate 17 Blood Pressure 136/60 131/68 Pulse Oximetry 96 02/13/22 18:10 02/13/22 18:16 02/13/22 18:16 Pulse Rate 64 65 Respiratory Rate 16 20 Blood Pressure 142/66 H Pulse Oximetry 96 94 02/13/22 18:21 02/13/22 18:21 02/13/22 18:26 Pulse Rate 65 Respiratory Rate 17 Blood Pressure 130/65 148/63 H Pulse Oximetry 92 02/13/22 18:26 02/13/22 18:30 02/13/22 18:31 Pulse Rate 64 66 Respiratory Rate 18 17 Blood Pressure 139/65 Pulse Oximetry 95 97 02/13/22 18:31 02/13/22 18:36 02/13/22 18:36 Pulse Rate 63 64 Respiratory Rate 16 17 Blood Pressure 125/60 Pulse Oximetry 96 94 MDM - Chest Pain <Tomy Washington DO - Last Filed: 02/17/22 20:25> Lab Data Result diagrams: 02/13/22 07:05 02/13/22 07:05 Labs: Lab Results 02/13/22 02/13/22 02/13/22 Range/Units 07:05 07:05 07:05 WBC 12.0 H (4.5-11.0) X10^3/uL RBC 5.05 (4.5-5.9) X10^6/uL Hgb 15.8 (13.5-17.5) g/dL Hct 48.7 (41-53) % MCV 96.4 (80-100) fL MCH 31.4 (26-34) PG MCHC 32.5 (30-36) % RDW 14.3 (11.6-14.8) % Plt Count 201 (150-400) X10^3/uL Neut % (Auto) 44.8 L (50-75) % Lymph % (Auto) 45.9 H (25-40) % Christian % (Auto) 7.2 (3-14) % Eos % (Auto) 1.3 L (2-4) % Baso % (Auto) 0.8 (0-2) % Neut # (Auto) 5400 (4081-1688) /uL Lymph # (Auto) 5500 H (1061-9372) /uL Christian # (Auto) 900 (0-900) /uL Eos # (Auto) 100 (0-450) /uL Baso # (Auto) 100 (0-100) /uL PT 11.2 (10.1-12.7) SECONDS INR 1.0 (0.9-1.3) Sodium 134 L (137-145) mmol/L Potassium 4.6 (3.4-5.1) mmol/L Chloride 100 (98-107) mmol/L Carbon Dioxide 22 (22-32) mmol/L BUN 44 H (9-20) mg/dL Creatinine 1.53 H (0.66-1.25) mg/dL Estimated GFR 48 L (>60) mL/min BUN/Creatinine Ratio 28.8 H (6-22) Glucose 288 H (80-110) mg/dL Calcium 9.5 (8.4-10.2) mg/dL Total Bilirubin 0.6 (0.2-1.3) mg/dL AST 25 (17-59) IU/L ALT 23 (<50) IU/L Alkaline Phosphatase 99 (38-126) U/L Total Creatine Kinase 130 (55-170) U/L CK-MB (CK-2) 2.45 H (<2.37) ng/mL CK-MB (CK-2) Rel Index 1.9 (1.5-5.0) % Troponin I 0.100 H (0.01-0.034) ng/mL NT-Pro-B Natriuret Pep 229 H (<125) pg/mL Total Protein 7.4 (6.3-8.2) g/dL Albumin 4.2 (3.5-5.0) g/dL Globulin 3.2 (1.7-4.1) g/dL Albumin/Globulin Ratio 1.3 (1.0-2.8) Lipase 137 (23-300) U/L SARS-CoV-2 (PCR) (Negative) Influenza A (RT-PCR) (NEGATIVE) Influenza B (RT-PCR) (NEGATIVE) RSV (PCR) (Negative) 02/13/22 02/13/22 02/13/22 Range/Units 07:16 08:54 14:40 WBC (4.5-11.0) X10^3/uL RBC (4.5-5.9) X10^6/uL Hgb (13.5-17.5) g/dL Hct (41-53) % MCV (80-100) fL MCH (26-34) PG MCHC (30-36) % RDW (11.6-14.8) % Plt Count (150-400) X10^3/uL Neut % (Auto) (50-75) % Lymph % (Auto) (25-40) % Christian % (Auto) (3-14) % Eos % (Auto) (2-4) % Baso % (Auto) (0-2) % Neut # (Auto) (7368-7191) /uL Lymph # (Auto) (8129-9174) /uL Christian # (Auto) (0-900) /uL Eos # (Auto) (0-450) /uL Baso # (Auto) (0-100) /uL PT (10.1-12.7) SECONDS INR (0.9-1.3) Sodium (137-145) mmol/L Potassium (3.4-5.1) mmol/L Chloride (98-107) mmol/L Carbon Dioxide (22-32) mmol/L BUN (9-20) mg/dL Creatinine (0.66-1.25) mg/dL Estimated GFR (>60) mL/min BUN/Creatinine Ratio (6-22) Glucose (80-110) mg/dL Calcium (8.4-10.2) mg/dL Total Bilirubin (0.2-1.3) mg/dL AST (17-59) IU/L ALT (<50) IU/L Alkaline Phosphatase (38-126) U/L Total Creatine Kinase (55-170) U/L CK-MB (CK-2) (<2.37) ng/mL CK-MB (CK-2) Rel Index (1.5-5.0) % Troponin I 0.087 H 0.081 H (0.01-0.034) ng/mL NT-Pro-B Natriuret Pep (<125) pg/mL Total Protein (6.3-8.2) g/dL Albumin (3.5-5.0) g/dL Globulin (1.7-4.1) g/dL Albumin/Globulin Ratio (1.0-2.8) Lipase (23-300) U/L SARS-CoV-2 (PCR) Negative (Negative) Influenza A (RT-PCR) Flu a negative (NEGATIVE) Influenza B (RT-PCR) Flu b negative (NEGATIVE) RSV (PCR) Negative (Negative) Point of Care Testing Glucose POC 233 <Carmina Ramos, DO - Last Filed: 02/13/22 19:19> Lab Data Labs: Lab Results 02/13/22 02/13/22 02/13/22 Range/Units 07:05 07:05 07:05 WBC 12.0 H (4.5-11.0) X10^3/uL RBC 5.05 (4.5-5.9) X10^6/uL Hgb 15.8 (13.5-17.5) g/dL Hct 48.7 (41-53) % MCV 96.4 (80-100) fL MCH 31.4 (26-34) PG MCHC 32.5 (30-36) % RDW 14.3 (11.6-14.8) % Plt Count 201 (150-400) X10^3/uL Neut % (Auto) 44.8 L (50-75) % Lymph % (Auto) 45.9 H (25-40) % Christian % (Auto) 7.2 (3-14) % Eos % (Auto) 1.3 L (2-4) % Baso % (Auto) 0.8 (0-2) % Neut # (Auto) 5400 (4779-9978) /uL Lymph # (Auto) 5500 H (4512-2640) /uL Christian # (Auto) 900 (0-900) /uL Eos # (Auto) 100 (0-450) /uL Baso # (Auto) 100 (0-100) /uL PT 11.2 (10.1-12.7) SECONDS INR 1.0 (0.9-1.3) Sodium 134 L (137-145) mmol/L Potassium 4.6 (3.4-5.1) mmol/L Chloride 100 (98-107) mmol/L Carbon Dioxide 22 (22-32) mmol/L BUN 44 H (9-20) mg/dL Creatinine 1.53 H (0.66-1.25) mg/dL Estimated GFR 48 L (>60) mL/min BUN/Creatinine Ratio 28.8 H (6-22) Glucose 288 H (80-110) mg/dL Calcium 9.5 (8.4-10.2) mg/dL Total Bilirubin 0.6 (0.2-1.3) mg/dL AST 25 (17-59) IU/L ALT 23 (<50) IU/L Alkaline Phosphatase 99 (38-126) U/L Total Creatine Kinase 130 (55-170) U/L CK-MB (CK-2) 2.45 H (<2.37) ng/mL CK-MB (CK-2) Rel Index 1.9 (1.5-5.0) % Troponin I 0.100 H (0.01-0.034) ng/mL NT-Pro-B Natriuret Pep 229 H (<125) pg/mL Total Protein 7.4 (6.3-8.2) g/dL Albumin 4.2 (3.5-5.0) g/dL Globulin 3.2 (1.7-4.1) g/dL Albumin/Globulin Ratio 1.3 (1.0-2.8) Lipase 137 (23-300) U/L SARS-CoV-2 (PCR) (Negative) Influenza A (RT-PCR) (NEGATIVE) Influenza B (RT-PCR) (NEGATIVE) RSV (PCR) (Negative) 02/13/22 02/13/22 02/13/22 Range/Units 07:16 08:54 14:40 WBC (4.5-11.0) X10^3/uL RBC (4.5-5.9) X10^6/uL Hgb (13.5-17.5) g/dL Hct (41-53) % MCV (80-100) fL MCH (26-34) PG MCHC (30-36) % RDW (11.6-14.8) % Plt Count (150-400) X10^3/uL Neut % (Auto) (50-75) % Lymph % (Auto) (25-40) % Christian % (Auto) (3-14) % Eos % (Auto) (2-4) % Baso % (Auto) (0-2) % Neut # (Auto) (4304-9105) /uL Lymph # (Auto) (1109-5830) /uL Christian # (Auto) (0-900) /uL Eos # (Auto) (0-450) /uL Baso # (Auto) (0-100) /uL PT (10.1-12.7) SECONDS INR (0.9-1.3) Sodium (137-145) mmol/L Potassium (3.4-5.1) mmol/L Chloride (98-107) mmol/L Carbon Dioxide (22-32) mmol/L BUN (9-20) mg/dL Creatinine (0.66-1.25) mg/dL Estimated GFR (>60) mL/min BUN/Creatinine Ratio (6-22) Glucose (80-110) mg/dL Calcium (8.4-10.2) mg/dL Total Bilirubin (0.2-1.3) mg/dL AST (17-59) IU/L ALT (<50) IU/L Alkaline Phosphatase (38-126) U/L Total Creatine Kinase (55-170) U/L CK-MB (CK-2) (<2.37) ng/mL CK-MB (CK-2) Rel Index (1.5-5.0) % Troponin I 0.087 H 0.081 H (0.01-0.034) ng/mL NT-Pro-B Natriuret Pep (<125) pg/mL Total Protein (6.3-8.2) g/dL Albumin (3.5-5.0) g/dL Globulin (1.7-4.1) g/dL Albumin/Globulin Ratio (1.0-2.8) Lipase (23-300) U/L SARS-CoV-2 (PCR) Negative (Negative) Influenza A (RT-PCR) Flu a negative (NEGATIVE) Influenza B (RT-PCR) Flu b negative (NEGATIVE) RSV (PCR) Negative (Negative) Point of Care Testing Glucose POC 233 ECG Data Attestation: I personally reviewed and interpreted this ECG as follows: Prior ECG tracings: not available for review Interpretation: Sinus rhythm, frequent PVCs, rate of 78 [place] 164 QRS of 110 QTC of 440. No acute ST elevation appreciated. No priors for comparison. EKG 2 sinus rhythm frequent PVCs, rate is 67 [place] 206 QRS of 110 and QTC of 435. Patient has clearly defined P waves throughout all leads earlier. Patient does not appear to have dynamic changes no elevation appreciated. MDM Narrative Medical decision making narrative: This is a 71-year-old male with known cardiac history with multiple cardiac stents most recently in 2019 to who is had 4 episodes of chest pain since February 06/ most recently last night starting at 3:00 a.m.. Patient tried nitro x2 +Rolaids without any improvement he received nitro EN route, had aspirin 324 mg an additional nitro upon arrival and chest pain has resolved. Patient states he was not having any chest pain between 2018 and this . Patient does not have prior EKGs for comparison but does not have clear ST elevation, white count is 12, patient's creatinine is 1.53, BUN 44, troponin is indeterminate 0.10 with no priors for comparison BNP is 229, glucose is 288. Patient's history is suspicious for cardiac nature, he is without chest pain currently will trend out troponins and contact Cardiology. Spoke with cardiology and they agree does seem suspicious for angina, goal was to transfer for observation and potential cardiac catheterization in the next 24 hours stress testing would not necessarily be helpful for this patient. Troponin was trended down words, observation bed was not available at [place] and there are no beds available regionally had will likely take several days 3-5 to find placement. I did add nitro paste as recommended by the fire protection specialist patient has been asymptomatic since. Re-contacted and spoke with Dr. Drew again he recommends changing patient oral Imdur, they will see patient this upcoming week to catheterize him with strict return precautions if recurrent chest pain. Discussed with the patient he is open to this option. Discharge Plan Departure Patient Disposition: Home Clinical Impression: Angina at rest Instructions: DI for Angina Activity Restrictions/Additional Instructions: Follow up with your cardiology team, call tomorrow. I spoke with Dr. Drew from your cardiology team their goal is to perform cardiac catheterization you next week. We both suspect that your having angina and that that is the source of her chest pain today Please take Imdur daily until you see your cardiology team. You may continue your home medications as prescribed. Please return for new or worsening chest, shortness of breath, lightheadedness or passing out, increasing swelling in your extremities or other new or concerning changes Prescriptions: New isosorbide mononitrate 60 mg tablet extended release 24 hr 60 mg PO DAILY Qty: 30 0RF No Action telmisartan [Micardis] 80 MG tablet 80 mg PO QDAY Qty: 0 tramadol 50 MG tablet 50 mg PO PRN Qty: 0 FENOFIBRATE (#TRICOR) 160 mg PO QDAY Qty: 0 atorvastatin [Lipitor] 40 MG tablet 40 mg PO HS Qty: 0 metoprolol tartrate 100 MG tablet 100 mg PO BID Qty: 0 omeprazole 20 MG capsule,delayed release(DR/EC) 20 mg PO BID@0600,2100 Qty: 0 dutasteride [Avodart] 0.5 MG capsule 0.5 mg PO QDAY Qty: 0 LEVOTHYROXINE SODIUM 100 mcg PO QDAY Qty: 0 ASPIRIN (#ASPIRIN) 81 mg PO QDAY Qty: 0 allopurinol 300 MG tablet 300 mg PO QDAY Qty: 0 INSULIN DETEMIR (LEVEMIR FLEXPEN 3 ML) 40 units SQ HS Qty: 3 INSULIN DETEMIR (LEVEMIR FLEXPEN 3 ML) 40 units SQ HS Qty: 3 glipizide [Glucotrol] 10 MG tablet 10 mg PO BIDCC Qty: 0 doxazosin [Cardura] 4 MG tablet PO HS Qty: 0 Referrals: Robles Drew MD [Non-Staff] - Marlene Wilkinson DO [Primary Care Provider] - Visit Report Forms: Patient Portal/API
[2022-02-13] MEDS: NITROGLYCERIN 0.4 MG SL TAB SL ×2 (07:14→08:45)
[2022-02-13 07:18] LABS: Add Manual Diff / Slide Review NO; Basophils Absolute Auto 100 /uL (0-100); Basophils Percent Auto 0.8 % (0-2); Eosinophils Absolute Auto 100 /uL (0-450); Eosinophils Percent Auto 1.3 % (2-4); Hematocrit 48.7 % (41-53); Hemoglobin 15.8 g/dL (13.5-17.5); Lymphocytes Absolute Auto 5500 /uL (1100-4500); Lymphocytes Percent Auto 45.9 % (25-40); Mean Corpuscular HGB Conc 32.5 % (30-36); Mean Corpuscular Hemoglobin 31.4 PG (26-34); Mean Corpuscular Volume 96.4 fL (80-100); Monocytes Absolute Auto 900 /uL (0-900); Monocytes Percent Auto 7.2 % (3-14); Neutrophils Absolute Auto 5400 /uL (1500-7000); Neutrophils Percent Auto 44.8 % (50-75); Platelet Count 201 X10^3/uL (150-400); Red Blood Cell Count 5.05 X10^6/uL (4.5-5.9); Red Cell Distribution Width 14.3 % (11.6-14.8)
[2022-02-13 07:24] LABS: Prothrombin Time 11.2 SECONDS (10.1-12.7)
[2022-02-13 07:28] LABS: Alanine Aminotransferase 23 IU/L (<50); Albumin 4.2 g/dL (3.5-5.0); Albumin Globulin Ratio 1.3 (1.0-2.8); Alkaline Phosphatase 99 U/L (38-126); Aspartate Aminotransferase 25 IU/L (17-59); BUN Creatinine Ratio 28.8 (6-22); Bilirubin Total 0.6 mg/dL (0.2-1.3); Blood Urea Nitrogen 44 mg/dL (9-20); Calcium 9.5 mg/dL (8.4-10.2); Carbon Dioxide 22 mmol/L (22-32); Chloride 100 mmol/L (98-107); Creatine Kinase 130 U/L (55-170); Estimated Glomerular Filt Rate 48 mL/min (>60); Globulin 3.2 g/dL (1.7-4.1); Glucose 288 mg/dL (80-110); Lipase 137 U/L (23-300); Potassium 4.6 mmol/L (3.4-5.1); Sodium 134 mmol/L (137-145); Total Protein 7.4 g/dL (6.3-8.2)
[2022-02-13] MEDS: SODIUM CHLORIDE 0.9% 1,000 ML 150 ML IV (07:35)
[2022-02-13 07:40] LABS: NT-proBNP (BNP-Adult 18+) 229 pg/mL (<125)
[2022-02-13 07:43] LABS: CKMB % Relative Index 1.9 % (1.5-5.0); Creatine Kinase MB 2.45 ng/mL (<2.37); HEMOLYSIS 27 (0-50)
[2022-02-13 08:17] LABS: Influenza A - CEPHEID Flu A NEGATIVE (NEGATIVE); Influenza B - CEPHEID Flu B NEGATIVE (NEGATIVE); Respiratory Syncytial Virus Negative (Negative)
[2022-02-13 08:19] LABS: COVID-19 CEPHEID 4-PLEX PCR Negative (Negative)
--- NOTE | 2022-02-13 08:47 | PC.NURSE ---
pt reports chest pressure is returning, it had been relieved completely and 0/10. pt given second dose of nitroglycerin sl and cardiac enzymes and ekg being repeated, md notified.
--- NOTE | 2022-02-13 09:15 | PC.NURSE ---
pt reports improvement of chest pressure to 0/10
[2022-02-13 09:23] LABS: Troponin I 0.087 ng/mL (0.01-0.034)
[2022-02-13] MEDS: NITROGLYCERIN OINT 1 INCH/GM OINT...G. TOP (10:55)
[2022-02-13] MEDS: INSULIN LISPRO 100 UNIT/ML 3ML VIAL 42 UNIT SUBCUT ×2 (12:19→16:21)
[2022-02-13] MEDS: INSULIN GLARGINE 100 UNIT/ML 3ML PEN 42 UNIT SUBCUT (12:25)
[2022-02-13] MEDS: ACETAMINOPHEN 325 MG TABLET 975 MG PO (12:31)
[2022-02-13 15:16] LABS: Troponin I 0.081 ng/mL (0.01-0.034)
[2022-02-13] MEDS: MORPHINE 2 MG/ML INJ IV (16:21)
[2022-02-13] MEDS: ISOSORBIDE MONONITRATE ER 30 MG TABLET 60 MG PO (17:49)
--- NOTE | 2022-02-13 17:56 | PC.NURSE ---
Existing nitro paste was removed from the patient chest prior to the administration of Imdur per provider order.
== END 2022-02-13 19:27 | disposition home or self-care (01) ==
PROVIDERS: Emergency Medicine; Emergency Provider Emergency Medicine; PCP Family Medicine
DX: I20.9 Angina pectoris, unspecified (principal); Z95.5 Presence of coronary angioplasty implant and graft; Z20.822 Contact with and (suspected) exposure to COVID-19; R07.9 Chest pain, unspecified; E11.9 Type 2 diabetes mellitus without complications; Z79.899 Other long term (current) drug therapy
CPT/HCPCS: 0241U; 36415; 71045; 80053; 82550; 82553; 82962; 83690; 83880; 84484; 85025; 85610; 93005; 96361; 96372; 96374; 99284; J1815; J2270

== ENCOUNTER 2022-02-19 09:43 | Emergency (ER) | payer MEDICARE, OTHER, SELFPAY ==
[2022-02-19] VITALS (30 sets, daily range): BP systolic 118–170; BP diastolic 59–88; PULSE 75–100; RESP 14–31; TEMP 36.9; O2SAT 93–97; BMI 42.6
--- NOTE | 2022-02-19 09:57 | DI.RAD.S_ITS ---
PROCEDURE: XR CHEST 1V INDICATIONS: chest pain TECHNIQUE: One view of the chest was acquired. COMPARISON: [facility], CR, XR CHEST 1V, 02/13/2022, 7:03. FINDINGS: Surgical changes and devices: None. Lungs and pleura: Lungs are clear. No pleural effusions or pneumothorax. Mediastinum: Mediastinal contours appear normal. Heart size is normal. Bones and chest wall: No suspicious bony lesions. Overlying soft tissues appear unremarkable. IMPRESSION: No acute cardiopulmonary abnormality Dictated by: Deonte Fisher M.D. on 02/19/2022 at 10:53 Approved by: Deonte Fisher M.D. on 02/19/2022 at 10:54
[2022-02-19 10:31] LABS: Add Manual Diff / Slide Review NO; Basophils Absolute Auto 100 /uL (0-100); Basophils Percent Auto 0.8 % (0-2); Eosinophils Absolute Auto 100 /uL (0-450); Hematocrit 43.5 % (41-53); Hemoglobin 14.6 g/dL (13.5-17.5); Lymphocytes Absolute Auto 2200 /uL (1100-4500); Lymphocytes Percent Auto 30.6 % (25-40); Mean Corpuscular HGB Conc 33.5 % (30-36); Mean Corpuscular Hemoglobin 31.9 PG (26-34); Mean Corpuscular Volume 95.2 fL (80-100); Monocytes Absolute Auto 500 /uL (0-900); Monocytes Percent Auto 7.5 % (3-14); Neutrophils Absolute Auto 4300 /uL (1500-7000); Neutrophils Percent Auto 59.1 % (50-75); Platelet Count 173 X10^3/uL (150-400); Red Blood Cell Count 4.57 X10^6/uL (4.5-5.9); White Blood Cell Count 7.3 X10^3/uL (4.5-11.0)
[2022-02-19 10:38] LABS: INR 1.1 (0.9-1.3); Prothrombin Time 12.4 SECONDS (10.1-12.7)
[2022-02-19 10:40] LABS: PTT Partial Thromboplastin Tim 26 SECONDS (26-36)
[2022-02-19 10:45] LABS: Alanine Aminotransferase 29 IU/L (<50); Albumin 3.6 g/dL (3.5-5.0); Albumin Globulin Ratio 1.3 (1.0-2.8); Alkaline Phosphatase 134 U/L (38-126); Aspartate Aminotransferase 30 IU/L (17-59); BUN Creatinine Ratio 14.4 (6-22); Bilirubin Total 0.8 mg/dL (0.2-1.3); Blood Urea Nitrogen 19 mg/dL (9-20); Calcium 8.7 mg/dL (8.4-10.2); Carbon Dioxide 25 mmol/L (22-32); Chloride 103 mmol/L (98-107); Creatine Kinase 245 U/L (55-170); Estimated Glomerular Filt Rate 57 mL/min (>60); Globulin 2.8 g/dL (1.7-4.1); Glucose 324 mg/dL (80-110); HEMOLYSIS < 15 (0-50); Lipase 70 U/L (23-300); Magnesium 1.7 mg/dL (1.6-2.3); Potassium 3.9 mmol/L (3.4-5.1); Sodium 135 mmol/L (137-145); Total Protein 6.4 g/dL (6.3-8.2)
[2022-02-19 11:00] LABS: CKMB % Relative Index 1.2 % (1.5-5.0); Creatine Kinase MB 2.94 ng/mL (<2.37)
--- NOTE | 2022-02-19 11:01 | ED.CHESTPAIN ---
HPI - Chest Pain General Chief Complaint: Chest Pain Stated Complaint: heart racing, phy ref, SOB foggy brain Time Seen by Provider: 02/19/22 09:56 Source: patient Mode of arrival: Wheelchair Limitations: no limitations Limitations: no limitations History of Present Illness HPI narrative: This 69-year-old gentleman has a history of CAD with a total of 7 stent. He has a history of hypertension, hyperlipidemia, diabetes, GERD, gout and obesity. He was seen here 6 days ago with chest pain. His history is concerning, he had mild elevation of troponin. The initial plan was transferred to [facility] for additional cardiac evaluation. No beds were available. He was asymptomatic with topical nitro. After a prolonged ER evaluation, he was discharged on Imdur. His troponin was 0.087, a repeat 0.081. He returns now with dyspnea on exertion. The day after departure he was having extreme dyspnea with minimal physical effort. He had no upon had chest pain, palpitations, dizziness, or near-syncope. Dyspnea resolves with rest. He is no cough, sinus congestion, sore throat, or fever chills. He denies acute illness. He was seen by his PCM today, given sublingual nitroglycerin. He is asymptomatic of chest pain upon arrival, he is asymptomatic of the dyspnea at rest. Related Data Home Medications Medication Instructions Recorded Confirmed ASPIRIN (#ASPIRIN) 81 mg PO QDAY ##0 09/09/11 FENOFIBRATE (#TRICOR) 160 mg PO QDAY ##0 09/09/11 LEVOTHYROXINE SODIUM 100 mcg PO QDAY ##0 09/09/11 atorvastatin 40 mg tablet (Lipitor) 40 mg PO HS ##0 09/09/11 dutasteride 0.5 mg capsule 0.5 mg PO QDAY ##0 09/09/11 (Avodart) metoprolol tartrate 100 mg tablet 100 mg PO BID ##0 09/09/11 omeprazole 20 mg capsule,delayed 20 mg PO BID@0600,2100 ##0 09/09/11 release telmisartan 80 mg tablet (Micardis) 80 mg PO QDAY ##0 09/09/11 tramadol 50 mg tablet 50 mg PO PRN ##0 09/09/11 INSULIN DETEMIR (LEVEMIR FLEXPEN 3 40 units SQ HS #3 mL 03/02/12 ML) INSULIN DETEMIR (LEVEMIR FLEXPEN 3 40 units SQ HS #3 mL 03/02/12 ML) allopurinol 300 mg tablet 300 mg PO QDAY ##0 03/02/12 doxazosin 4 mg tablet (Cardura) mg PO HS ##0 03/02/12 glipizide 10 mg tablet (Glucotrol) 10 mg PO BIDCC ##0 03/02/12 Previous Rx's Medication Instructions Recorded isosorbide mononitrate 60 mg 60 mg PO DAILY #30 tabs 02/13/22 tablet,extended release 24 hr Allergies Allergy/AdvReac Type Severity Reaction Status Date / Time Penicillins Allergy Unknown Verified 02/19/22 09:57 Review of Systems Review of Systems ROS Unobtainable: All systems reviewed & are unremarkable except as noted in HPI and below Constitutional Constitutional: Denies body ache(s), Denies chills, Denies fatigue, Denies fever(s), Reports lethargy and Reports weakness Eyes Eyes: Denies blurry vision ENT Ears, Nose, Mouth, and Throat: Denies vertigo, Denies dizziness, Denies otalgia, Denies neck pain and Denies sinus pain Cardiovascular Cardiovascular: Denies chest pain, Denies rapid heart rate, Denies pedal edema, Denies irregular heart rhythm and Reports dyspnea on exertion Respiratory Respiratory: Reports as per HPI and Reports dyspnea on exertion Gastrointestinal Gastrointestinal: Denies abdominal pain, Denies nausea and Denies vomiting Musculoskeletal Musculoskeletal: Denies back pain, Denies myalgias and Denies neck pain Comments: No lower extremity edema. Integumentary/Breasts Skin/Breast: Denies rash Neurologic Neurologic: Denies vertigo, Denies dizziness and Reports weakness Psychiatric Psychiatric: Reports system reviewed and no additional complaints, except as documented Endocrine Endocrine: Denies fatigue Hematologic/Lymphatic On Anticoagulants: No Patient History Medical History (Updated 02/19/22 @ 21:38 by Modesto Marks MD) CAD (coronary atherosclerotic disease) Diabetes Hyperlipidemia Hypertension Surgical History (Updated 02/19/22 @ 21:39 by Modesto Marks MD) H/O cardiac catheterization History of inguinal hernia repair Social History Smoking Status: Never smoker Smoking Status: Never smoker alcohol intake frequency: holidays/special occasions only Substance Use Type: does not use Exam Initial Vital Signs Initial Vital Signs: Vital Signs Temperature 98.4 F 02/19/22 09:53 Pulse Rate 98 H 02/19/22 09:53 Respiratory Rate 25 H 02/19/22 09:53 Blood Pressure 169/88 H 02/19/22 09:53 Pulse Oximetry 97 02/19/22 09:53 Oxygen Delivery Method 02/19/22 09:53 Const General: cooperative, comfortable and No in distress [facility] Head: normocephalic and atraumatic Face and sinus: normal facial exam Mouth: oral mucosae normal Throat: posterior oropharynx normal Eyes General: Yes appearance normal, both eyes and all related structures Neck Neck: No JVD Chest Chest: normal inspection of the chest and No tenderness Resp Auscultation: clear to auscultation bilaterally Cardio Rate: regular rate Rhythm: regular rhythm Heart Sounds: S1 normal, S2 normal, no gallops, no murmurs and no rubs GI Inspection: normal to inspection Palpation: soft and No tender Auscultation: normal bowel sounds Back/Spine/Pelvis Back: normal to inspection and No back tenderness Skin General: no rashes or lesions noted Lesions: no lesions Neuro General: patient alert, patient awake, patient oriented x3 and no focal motor deficits Course Course Course Narrative: The case was discussed with Dr. Saucedo, cardiology at [facility] in [place]. The patient needs to go to the [facility]. After consultation with Dr. Saucedo, I have started on heparin, increased these atorvastatin 80 mg, and given a full dose of aspirin. Patient remains pain-free while at rest. A 2nd troponin is 1.230. I was contacted by LISA Maldonado [facility], patient has been accepted for transfer. Orders Ordered: ED Orders 02/19/22 13:26 Trop I [Troponin I] Stat 02/19/22 18:28 EKG-12 Lead Routine Discontinued Medications Aspirin (Aspirin 81 Mg Chew Tab) 324 mg PO NOW ONE Stop: 02/19/22 13:56 Last Admin: 02/19/22 14:35 Dose: 243 mg Documented By: MOSHE Aspirin (Aspirin Ec 81 Mg Tablet) 81 mg PO NOW ONE Stop: 02/19/22 15:16 Last Admin: 02/19/22 15:23 Dose: Not Given Documented By: MOSHE Aspirin (Aspirin 81 Mg Chew Tab) 81 mg PO NOW ONE Stop: 02/19/22 15:18 Last Admin: 02/19/22 15:21 Dose: 81 mg Documented By: MOSHE Atorvastatin Calcium (Atorvastatin 20 Mg Tablet) 40 mg PO NOW ONE Stop: 02/19/22 13:56 Last Admin: 02/19/22 15:23 Dose: 40 mg Documented By: MOSHE Heparin Sodium (Porcine) (Heparin 5,000 Unit/Ml Vial) 7,500 unit IV NOW ONE Stop: 02/19/22 13:56 Last Admin: 02/19/22 14:40 Dose: 5,000 unit Documented By: MOSHE Heparin Sodium/Dextrose (Heparin Drip) 25,000 unit in 500 mls @ 32.332 mls/hr IV CONT TONIO; Protocol Last Titration: 02/19/22 19:34 Dose: 7.42 units/kg/hr, 20 mls/hr Documented By: Admin: 02/19/22 14:39 Dose: 7.42 units/kg/hr, 20 mls/hr Documented By: MOSHE Labetalol HCl (Labetalol 20 Mg/4 Ml Syringe) 10 mg IV NOW ONE Stop: 02/19/22 18:36 Vital Signs Vital signs: Vital Signs - 8 hr 02/19/22 13:37 02/19/22 13:37 02/19/22 14:00 Pulse Rate 87 76 Respiratory Rate 29 H 20 Blood Pressure 118/59 L Pulse Oximetry 95 95 02/19/22 14:30 02/19/22 15:00 02/19/22 15:30 Pulse Rate 83 75 76 Respiratory Rate 20 22 19 Blood Pressure Pulse Oximetry 94 95 93 02/19/22 16:00 02/19/22 16:30 02/19/22 16:56 Pulse Rate 80 79 98 H Respiratory Rate 18 21 31 H Blood Pressure Pulse Oximetry 95 93 96 02/19/22 16:56 02/19/22 17:00 02/19/22 17:00 Pulse Rate 86 Respiratory Rate 25 H Blood Pressure 154/82 H 150/81 H Pulse Oximetry 94 02/19/22 17:30 02/19/22 17:31 02/19/22 17:31 Pulse Rate 80 79 Respiratory Rate 18 17 Blood Pressure 158/78 H Pulse Oximetry 97 96 02/19/22 18:00 02/19/22 18:01 02/19/22 18:01 Pulse Rate 78 77 Respiratory Rate 14 14 Blood Pressure 170/75 H Pulse Oximetry 97 96 02/19/22 18:30 02/19/22 18:31 02/19/22 18:31 Pulse Rate 77 79 Respiratory Rate 14 19 Blood Pressure 154/69 H Pulse Oximetry 96 97 02/19/22 18:59 02/19/22 18:59 02/19/22 19:00 Pulse Rate 78 79 Respiratory Rate 15 21 Blood Pressure 148/73 H Pulse Oximetry 97 97 MDM - Chest Pain Lab Data Result diagrams: 02/19/22 10:15 02/19/22 10:15 Labs: Lab Results 02/19/22 02/19/22 02/19/22 Range/Units 10:15 10:15 10:15 WBC 7.3 (4.5-11.0) X10^3/uL RBC 4.57 (4.5-5.9) X10^6/uL Hgb 14.6 (13.5-17.5) g/dL Hct 43.5 (41-53) % MCV 95.2 (80-100) fL MCH 31.9 (26-34) PG MCHC 33.5 (30-36) % RDW 14.0 (11.6-14.8) % Plt Count 173 (150-400) X10^3/uL Neut % (Auto) 59.1 (50-75) % Lymph % (Auto) 30.6 (25-40) % [place] % (Auto) 7.5 (3-14) % Eos % (Auto) 2.0 (2-4) % Baso % (Auto) 0.8 (0-2) % Neut # (Auto) 4300 (0349-8366) /uL Lymph # (Auto) 2200 (9080-9161) /uL [place] # (Auto) 500 (0-900) /uL Eos # (Auto) 100 (0-450) /uL Baso # (Auto) 100 (0-100) /uL PT 12.4 (10.1-12.7) SECONDS INR 1.1 (0.9-1.3) APTT 26 (26-36) SECONDS Sodium 135 L (137-145) mmol/L Potassium 3.9 (3.4-5.1) mmol/L Chloride 103 (98-107) mmol/L Carbon Dioxide 25 (22-32) mmol/L BUN 19 (9-20) mg/dL Creatinine 1.32 H (0.66-1.25) mg/dL Estimated GFR 57 L (>60) mL/min BUN/Creatinine Ratio 14.4 (6-22) Glucose 324 H (80-110) mg/dL Calcium 8.7 (8.4-10.2) mg/dL Magnesium 1.7 (1.6-2.3) mg/dL Total Bilirubin 0.8 (0.2-1.3) mg/dL AST 30 (17-59) IU/L ALT 29 (<50) IU/L Alkaline Phosphatase 134 H (38-126) U/L Total Creatine Kinase 245 H (55-170) U/L CK-MB (CK-2) 2.94 H (<2.37) ng/mL CK-MB (CK-2) Rel Index 1.2 L (1.5-5.0) % Troponin I 1.190 H* (0.01-0.034) ng/mL Total Protein 6.4 (6.3-8.2) g/dL Albumin 3.6 (3.5-5.0) g/dL Globulin 2.8 (1.7-4.1) g/dL Albumin/Globulin Ratio 1.3 (1.0-2.8) Lipase 70 (23-300) U/L SARS-CoV-2 (PCR) (Negative) 02/19/22 02/19/22 Range/Units 10:15 13:26 WBC (4.5-11.0) X10^3/uL RBC (4.5-5.9) X10^6/uL Hgb (13.5-17.5) g/dL Hct (41-53) % MCV (80-100) fL MCH (26-34) PG MCHC (30-36) % RDW (11.6-14.8) % Plt Count (150-400) X10^3/uL Neut % (Auto) (50-75) % Lymph % (Auto) (25-40) % [place] % (Auto) (3-14) % Eos % (Auto) (2-4) % Baso % (Auto) (0-2) % Neut # (Auto) (2709-7144) /uL Lymph # (Auto) (9673-9735) /uL [place] # (Auto) (0-900) /uL Eos # (Auto) (0-450) /uL Baso # (Auto) (0-100) /uL PT (10.1-12.7) SECONDS INR (0.9-1.3) APTT (26-36) SECONDS Sodium (137-145) mmol/L Potassium (3.4-5.1) mmol/L Chloride (98-107) mmol/L Carbon Dioxide (22-32) mmol/L BUN (9-20) mg/dL Creatinine (0.66-1.25) mg/dL Estimated GFR (>60) mL/min BUN/Creatinine Ratio (6-22) Glucose (80-110) mg/dL Calcium (8.4-10.2) mg/dL Magnesium (1.6-2.3) mg/dL Total Bilirubin (0.2-1.3) mg/dL AST (17-59) IU/L ALT (<50) IU/L Alkaline Phosphatase (38-126) U/L Total Creatine Kinase (55-170) U/L CK-MB (CK-2) (<2.37) ng/mL CK-MB (CK-2) Rel Index (1.5-5.0) % Troponin I 1.230 H* (0.01-0.034) ng/mL Total Protein (6.3-8.2) g/dL Albumin (3.5-5.0) g/dL Globulin (1.7-4.1) g/dL Albumin/Globulin Ratio (1.0-2.8) Lipase (23-300) U/L SARS-CoV-2 (PCR) Negative (Negative) Imaging Data Chest x-ray: Radiologist's Impression: No acute cardiopulmonary disease. ECG Data Attestation: I personally reviewed and interpreted this ECG as follows: (Normal sinus rhythm. Prior anterior septal KS. No ectopy. No acute ST T wave changes.) Critical Care Time Critical Care Time Critical Care Time: Yes Total Critical Care Time: 50 Attestation: Critical care included patient evaluation, review of medical records, review of EKG, lab and radiology data. Consultation was obtained from cardiology in the [facility] hospitalist. Patient was informed the clinical situation, transportation for transfer was arranged. Discharge Plan Departure Patient Disposition: [facility] Clinical Impression: Non-ST elevated myocardial infarction (non-STEMI), Hypertension, Diabetes, Hyperlipidemia Prescriptions: No Action telmisartan [Micardis] 80 MG tablet 80 mg PO QDAY Qty: 0 tramadol 50 MG tablet 50 mg PO PRN Qty: 0 FENOFIBRATE (#TRICOR) 160 mg PO QDAY Qty: 0 atorvastatin [Lipitor] 40 MG tablet 40 mg PO HS Qty: 0 metoprolol tartrate 100 MG tablet 100 mg PO BID Qty: 0 omeprazole 20 MG capsule,delayed release(DR/EC) 20 mg PO BID@0600,2100 Qty: 0 dutasteride [Avodart] 0.5 MG capsule 0.5 mg PO QDAY Qty: 0 LEVOTHYROXINE SODIUM 100 mcg PO QDAY Qty: 0 ASPIRIN (#ASPIRIN) 81 mg PO QDAY Qty: 0 allopurinol 300 MG tablet 300 mg PO QDAY Qty: 0 INSULIN DETEMIR (LEVEMIR FLEXPEN 3 ML) 40 units SQ HS Qty: 3 INSULIN DETEMIR (LEVEMIR FLEXPEN 3 ML) 40 units SQ HS Qty: 3 glipizide [Glucotrol] 10 MG tablet 10 mg PO BIDCC Qty: 0 doxazosin [Cardura] 4 MG tablet PO HS Qty: 0 isosorbide mononitrate 60 mg tablet extended release 24 hr 60 mg PO DAILY Qty: 30 0RF Referrals: Marlene Wilkinson DO [Primary Care Provider] -
[2022-02-19 12:05] LABS: COVID19 -Nasal RAPID Negative (Negative)
[2022-02-19] MEDS: ASPIRIN 81 MG CHEW TAB 324 MG PO (14:35)
[2022-02-19] MEDS: HEPARIN DRIP 25,000 UNIT/500 ML IV.SOLN 20 UNIT IV (14:39)
[2022-02-19] MEDS: HEPARIN 5,000 UNIT/ML VIAL 7500 UNIT IV (14:40)
--- NOTE | 2022-02-19 14:45 | PC.NURSE ---
Order placed for heparin gtt at a continuous rate above protocol and bolus dose above protocol. Dr. Marks infromed and verbal order to start gtt at protocol rate and protocol bolus dose. Confirmed with CAMILA Milligan prior to starting heparin gtt and bolus. See MAR.
[2022-02-19] MEDS: ASPIRIN 81 MG CHEW TAB PO (15:21)
[2022-02-19] MEDS: ATORVASTATIN 20 MG TABLET 40 MG PO (15:23)
== END 2022-02-19 19:10 | disposition short-term general hospital (02) ==
PROVIDERS: Emergency Provider Emergency Medicine; PCP Family Medicine
DX: I21.4 Non-ST elevation (NSTEMI) myocardial infarction (principal); I10 Essential (primary) hypertension; E11.9 Type 2 diabetes mellitus without complications; E78.5 Hyperlipidemia, unspecified; Z79.899 Other long term (current) drug therapy; Z79.01 Long term (current) use of anticoagulants; Z20.822 Contact with and (suspected) exposure to COVID-19
CPT/HCPCS: 36415; 71045; 80053; 82550; 82553; 83690; 83735; 84484; 85025; 85610; 85730; 87635; 93005; 93010; 96365; 96366; 96375; 99284; 99291; C9803; J1644